=== PATIENT | female | born 1955 | race Caucasian/White ===

== ENCOUNTER → 2016-09-29 | Outpatient (CLI) | payer BC ==
[~2016-09-29] MED LIST: ASA325 MG PO; BENICAR20 MG PO; CELEBREX200 MG PO; CYMBALTA60 MG PO; MIRALAX PACKET17 GM PO; NORCO 7.5-3251 EACH PO; PROTONIX40 MG PO; SENOKOT S1 TAB PO; ULTRAM DPS50 MG PO
== END | disposition home or self-care (01) ==
LOC: RAD.S 07:20
DX: Z12.31 Encounter for screening mammogram for malignant neoplasm of breast (principal); R92.1 Mammographic calcification found on diagnostic imaging of breast